=== PATIENT | male | born 1990 | race African-American/Black ===

== ENCOUNTER 2021-11-27 18:06 | Emergency (ER) | payer SELFPAY ==
[~2021-11-27] VITALS: Ht 175.3 cm; Wt 114.8 kg
== END 2021-11-27 22:54 | disposition home or self-care (01) ==
LOC: ED 18:06
DX: R11.2 Nausea with vomiting, unspecified (principal); F12.20 Cannabis dependence, uncomplicated
CPT/HCPCS: 36415; 80053; 81001; 83690; 83735; 85025; 96361; 96374; 96375; 99284-25; J1790; J2405; J7040; J7121